=== PATIENT | female | born 1985 | race Caucasian/White ===

== ENCOUNTER 2016-09-29 19:37 | Inpatient (IN) | payer BC, OTHER ==
[~2016-09-29] VITALS: Ht 157.5 cm; Wt 72.6 kg
[2016-09-29] MEDS ORDERED: PRENTAB26 PO (20:00)
[2016-09-29 20:01] VITALS: Ht 157.5 cm; Wt 72.6 kg
[2016-09-29] MEDS ORDERED: LACTATED RINGER'S 1000ML 1,000 ML IV PRN (20:11)
[2016-09-29 20:31] LABS: MEAN CELL VOLUME 83.3 fL (80-100); MEAN CORPUSCULAR HEMOGLOBIN 28.2 pg (25-34); MEAN CORPUSCULAR HGB CONC 33.9 g/dl (32-36); MEAN PLATELET VOLUME 10.8 fL (7.4-10.4); PLATELET COUNT 181 K/uL (130-400); RED BLOOD COUNT 4.32 M/uL (4.2-5.4); WHITE BLOOD COUNT 8.97 K/uL (4.8-10.8)
--- NOTE | 2016-09-29 21:08 | HISTORY & PHYSICAL EXAMINATION ---
DATE OF ADMISSION: 09/29/2016 CHIEF COMPLAINT: Leakage of fluid. HISTORY OF PRESENT ILLNESS: The patient is a 30-year-old G1, P0 at 39 weeks and 1 day of gestation, who felt a gush of leakage of fluid at 5:30 p.m., it was clear. She has been leaking on her underwear as well as her pants since then. She started to feel contractions every 2-3 minutes for the last half an hour and they have not been very painful yet. She denies vaginal bleeding. She denies fever, chills, chest pain, shortness of breath, headache, change in her vision, nausea, vomiting or epigastric pain. She reports good movement. Her has been uncomplicated. PAST MEDICAL HISTORY: Unremarkable. PAST SURGICAL HISTORY: Carmen teeth extractions. MEDICATIONS: vitamins. ALLERGIES: No known drug allergies. SOCIAL HISTORY: The patient denies smoking, alcohol or drug use. GYNECOLOGIC HISTORY: The patient denies any history of STDs including Chlamydia, gonorrhea, herpes. This is her first . LABORATORIES: Her blood type is A positive, antibody screen negative. H\T\H was 11.8/36.3, platelets 251. Rubella titer positive, RPR nonreactive, hepatitis B surface antigen negative, and GC chlamydia cultures were negative. Glucola was 119 mg/dL. Repeat H\T\H was 10.9 /33.2, and GBS culture was negative on September 04. PHYSICAL EXAMINATION: GENERAL: The patient is alert, oriented x3, not in acute distress. VITAL SIGNS: Stable, afebrile, blood pressure 131/79, respiration 18, pulse 99, temperature 98.4. CARDIOVASCULAR SYSTEM: S1, S2, RRR. LUNGS: Clear to auscultation bilaterally. ABDOMEN: Soft, gravid, Vinny 7-1/2 to 8 pounds. EXTREMITIES: Nontender, no edema. PELVIC: She is grossly ruptured. Nitrazine test positive. Her cervix is 2 cm dilated, 50% effaced, -3 central, and vertex presentation. heart rate 130s, category 1. [place] contractions every 2-3 minutes. ASSESSMENT AND PLAN: The patient is a 30-year-old 1, para 0 at 39 weeks and 1 day of gestation; presenting with spontaneous rupture of membranes and regular contractions. Vital signs stable, afebrile. Group B strep negative. heart rate reassuring. Plan is to admit her, start IV fluids, expecting management for now. If no cervical change for the next 2 hours, consider Pitocin augmentation. The patient understands and agrees with the plan. She plans to have epidural when she needs it. JHON
[2016-09-29] MEDS ORDERED: LACTATED RINGER'S 1000ML 500 ML IV PRN (23:05)
[2016-09-29] MEDS ORDERED: OXYTOCIN 30 UNITS/500ML NSS IV PRN (23:15)
[2016-09-30] MEDS: LACTATED RINGER'S 1000ML 1,000 ML IV SCH ×2 (02:51→06:05)
[2016-09-30] MEDS ORDERED: BUPIVACAINE 0.25% 30 ML VIAL ONE (03:44)
[2016-09-30] MEDS ORDERED: EpHEDrine SULFATE INJ 50 MG/ML AMP ONE (03:44)
[2016-09-30] MEDS ORDERED: FENTANYL 2MCG/ML ROPIV 1.25MG/ML 100ML BAG EPI ONE (03:44)
[2016-09-30] MEDS ORDERED: FENTANYL CITRATE INJ 50 MCG/1 ML 2 ML VIAL ONE (03:45)
[2016-09-30] MEDS ORDERED: LACTATED RINGER'S 1000ML 500 ML IV PRN (04:32)
[2016-09-30] MEDS ORDERED: NALBUPHINE HCL INJ 10 MG/ML AMP IV PRN (04:45)
[2016-09-30] MEDS ORDERED: DiphenhydrAMINE HCL 50 MG/ML VIAL IV PRN (04:45)
[2016-09-30] MEDS ORDERED: EpHEDrine SULFATE INJ 50 MG/ML AMP IV PRN (04:45)
[2016-09-30] MEDS ORDERED: NALOXONE HCL INJ 0.4 MG/1 ML VIAL/CARP IV PRN (04:45)
[2016-09-30] MEDS ORDERED: ONDANSETRON INJ 2 MG/ML 2 ML VIAL IV PRN (04:45)
[2016-09-30] MEDS: FENTANYL 2MCG/ML ROPIV 1.25MG/ML 100ML BAG EPI PRN ×2 (07:00→11:58)
[2016-09-30] MEDS ORDERED: METHYLERGONOVINE MALEATE 0.2 MG/ML AMP ONE (14:08)
[2016-09-30] MEDS ORDERED: OXYTOCIN 30 UNITS/500ML NSS IV PRN (15:00)
[2016-09-30] MEDS ORDERED: HYDROCORTISONE ACETATE 25 MG SUPP PR PRN (15:00)
[2016-09-30] MEDS ORDERED: METHYLERGONOVINE MALEATE 0.2 MG/ML AMP IM ONE (15:00)
[2016-09-30] MEDS ORDERED: BENZOCAINE 20% AER SPR 82.5 GM CAN EXT PRN (15:00)
[2016-09-30] MEDS ORDERED: OXYCODONE/ACETAMINOPHEN 5-325 TAB PO PRN (15:00)
[2016-09-30] MEDS ORDERED: LANOLIN OINT EXT PRN ×2 (15:00)
[2016-09-30] MEDS ORDERED: ACETAMINOPHEN/CODEINE 300/30MG TAB PO PRN ×2 (15:00)
[2016-09-30] MEDS ORDERED: ACETAMINOPHEN 325 MG TAB PO PRN (15:00)
[2016-09-30] MEDS ORDERED: SUPERCREAM 0.870 % 15GM JAR EXT PRN (15:00)
--- NOTE | 2016-09-30 15:33 | OPERATIVE REPORT ---
DATE OF OPERATION: 09/30/2016 PROCEDURE NOTE The patient delivered a live female in occiput anterior presentation. There was loose nuchal cord which was easily reduced. Infant was delivered. There was also a body cord. The family requested delayed cord clamping, so request was honored. After the cord was cut the was placed on mother's abdomen. Placenta was spontaneously delivered. Inspection of the placenta showed grossly normal placenta with 3-vessel cord. Inspection of the perineum showed midline second degree laceration as well as another laceration in the right periurethral region. There was another laceration on the right vaginal wall. All lacerations were repaired with 3-0 and 2-0 Vicryl in layers. Inspection of the repaired laceration showed good hemostasis. Rectal exam post repair showed good sphincter tone. There were no sutures palpated in the rectum. Estimated blood loss is 500 mL. 's weight is pending. Apgars 8 and 9. Baby and mother are doing well in recovery. All instruments are removed from the vagina and accounted for x2 including sponges and needles. I attest to the content of the Intraoperative Record and any orders documented therein. Any exceptio ns are noted below.
--- NOTE | 2016-09-30 15:46 | Anesthesia Progress Nt - [facility] ---
Anesthesia Post Op Note Date & Time Sep 30, 2016 at 15:47 Vital Signs Pain Intensity: 0.0 Notes Mental Status: alert / awake / arousable, participated in evaluation Pt Amnestic to Procedure: Yes Nausea / Vomiting: adequately controlled Pain: adequately controlled Airway Patency, RR, SpO2: stable & adequate BP & HR: stable & adequate Hydration State: stable & adequate Anesthetic Complications: no major complications apparent
[2016-09-30 18:41] VITALS: BP 121/75; PULSE 109; TEMP 36.5
[2016-09-30] MEDS: IBUPROFEN 600 MG TAB PO PRN (19:29)
[2016-09-30 19:30] VITALS: BP 120/78; PULSE 103; TEMP 36.7; O2SAT 100
[2016-09-30] MEDS: DOCUSATE SODIUM 100 MG CAP PO SCH (19:33)
[2016-10-01 00:30] VITALS: BP 96/56; PULSE 79; TEMP 37.3
[2016-10-01] MEDS: IBUPROFEN 600 MG TAB PO PRN ×5 (03:00→20:35)
[2016-10-01 04:20] VITALS: BP 104/57; PULSE 81; TEMP 36.7; O2SAT 97
--- NOTE | 2016-10-01 06:34 | OB/GYN Progress Note ---
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 Subjective conversation w/ patient, physical exam Ambulation: ambulating normally Voiding: no voiding problems Passing Gas: Yes Diet Tolerance: Regular Diet Lochia: Moderate Review of Systems Constitutional: No chills, No fatigue, No fever, No problem reported, No sweats , No weakness, No weight loss Respiratory: No cough, No dyspnea at rest, No dyspnea on exertion, No hemoptysis, No problem reported, No shortness of breath, No sputum, No wheezing Cardiac: No PND, No chest pain, No claudication, No edema, No orthopnea, No palpitations, No problem reported Breast: No breast lump, No breast pain, No change in shape, No nipple discharge , No problem reported, No see HPI Abdomen: No GI bleeding, No constipation, No diarrhea, No nausea, No pain, No problem reported, No vomiting Female : No abnormal vaginal bleeding, No dysuria, No hematuria, No incontinence, No problem reported, No see HPI, No urinary frequency, No vaginal discharge VD day #1 pt doing well no complaints d/c home tomorrow Objective Vital Signs Date Time Temp Pulse Resp B/P Pulse Ox O2 Delivery O2 Flow Rate FiO2 10/01/16 04:20 36.7 81 18 104/57 97 Room Air 10/01/16 00:30 37.3 79 18 96/56 Room Air 10/01/16 00:30 Room Air 09/30/16 19:30 100 Room Air 09/30/16 19:30 36.7 103 20 120/78 100 Room Air 09/30/16 18:41 36.5 109 20 121/75 Room Air Laboratory Results Last 24 Hours Test 10/01/16 04:44
[2016-10-01 07:11] LABS: HEMATOCRIT 26.7 % (37-47)
[2016-10-01 07:30] VITALS: BP 103/56; PULSE 83; TEMP 36.8; O2SAT 97
[2016-10-01] MEDS: FERROUS SULFATE 325 MG TAB PO SCH (08:40)
[2016-10-01] MEDS: DOCUSATE SODIUM 100 MG CAP PO SCH ×2 (08:40→20:36)
[2016-10-01] MEDS: PRENATAL VITAMIN TAB PO SCH (08:41)
[2016-10-01 11:20] VITALS: BP 108/66; PULSE 85; TEMP 36.5; O2SAT 97
[2016-10-01 15:00] VITALS: BP 111/67; PULSE 94; TEMP 36.4
[2016-10-01] MEDS ORDERED: BISACODYL 5 MG TABEC PO SCH (20:00)
[2016-10-01 23:30] VITALS: BP 113/69; PULSE 75; TEMP 36.6
[2016-10-02] MEDS: IBUPROFEN 600 MG TAB PO PRN ×3 (00:41→10:55)
[2016-10-02 06:56] LABS: HEMATOCRIT 29.1 % (37-47); MEAN CELL VOLUME 84.8 fL (80-100); MEAN CORPUSCULAR HEMOGLOBIN 27.7 pg (25-34); MEAN CORPUSCULAR HGB CONC 32.6 g/dl (32-36); MEAN PLATELET VOLUME 10.5 fL (7.4-10.4); PLATELET COUNT 182 K/uL (130-400); RED BLOOD COUNT 3.43 M/uL (4.2-5.4); WHITE BLOOD COUNT 15.41 K/uL (4.8-10.8)
[2016-10-02] MEDS ORDERED: BISACODYL 10 MG SUPP PR PRN (07:00)
[2016-10-02 08:15] VITALS: BP 117/75; PULSE 83; TEMP 36.9; O2SAT 99
[2016-10-02] MEDS ORDERED: MTR600X PO (08:17)
--- NOTE | 2016-10-02 08:18 | Discharge Instructions ---
Discharge Instructions Admission Reason for Admission: Amniotic Fluid Leaking Discharge Discharge Diagnosis / Problem: term delivered Discharge Goals Goal(s): Routine recovery after delivery, Routine recovery after surgery Activity Recommendations Activity Limitations: as noted below Lifting Limitations: no more than 10 pounds Exercise/Sports Limitations: gradually increase as tolerated May Resume Sexual Activity: after follow-up appointment Shower/Bathe: no limitations Driving or Machine Use: resume 3 days after discharge . Instructions / Follow-Up Instructions / Follow-Up ACTIVITY RECOMMENDATIONS: * Gradual return to full activity over the next 2-3 weeks. * No lifting - nothing heavier than baby over the next 2-3 weeks. * Do not engage in vigorous exercise, sexual activity or sports until cleared by your physician. * Do not drive or operate any motorized equipment until cleared by your physician. * You may shower/bathe daily. BREAST CARE: If you are not breast feeding: * Wear a supportive bra 24 hours a day for one to two weeks. * Avoid stimulating your breasts and nipples as much as possible during the first few weeks after delivery. * When taking a shower, have the warm water hit your back, not breasts. * When your breasts feel full, apply ice packs. Usually three to four times a day helps ease the discomfort. * Take a mild pain medication (Tylenol/Motrin) when you are uncomfortable. If breast feeding: * Use breast milk to lubricate nipples. Lansinoh cream may be used for sore nipples. You do not need to remove cream prior to breast feeding. If using a different brand of cream, check the label for directions regarding removal of cream prior to nursing. * Wear a supportive bra. * If having problems with breasts or breast feeding, call a medical device sales consultant or your health care provider. EPISIOTOMY CARE: After delivery, if you have an episiotomy (stitches), the following steps will ease discomfort and aid healing. * For the first 24 hours after delivery, place ice packs next to your episiotomy to help reduce swelling. * After the first 24 hour-period, sitz baths, either portable or in the tub, are suggested. A shower with a shower arm sprayed over the episiotomy may be comforting. * Alesia care should be done after each voiding and bowel movement. Squirt warm water from a plastic bottle over the perineum (region of the body between the anus and urinary opening) and pat dry. * Use Dermoplast to ease discomfort. Shake container. Benedict directly over the episiotomy. * Place a Tucks on a clean sanitary pad next to your episiotomy. OVER THE COUNTER MEDICATION: * For discomfort or pain, you may use Acetaminophen (Tylenol), Ibuprofen (Advil ), or Naproxen (Aleve) following the package directions. * For constipation you may use Colace following the package directions. SPECIAL CARE INSTRUCTIONS: When you are discharged from the hospital, it is important for you to follow the instructions listed below: * During the first week at home, you should be able to care for yourself and your baby. In addition, the usual light household activities are encouraged. * Limit your activities to the way you feel. Do not try to clean the house or move furniture. Be sensible. * If you actively engage in sports and have done so up until the time of your delivery, you may resume these activities as soon as you feel able. This may take up to one month or even longer. Use good judgment. * Continue to take your vitamins for at least six weeks after the of your baby. * Your diet need not be limited unless you were on a special diet before your delivery. Breast-feeding mothers need around 2500 calories per day and at least 64-80 ounces of fluid per day (8 to 10 glasses). * You should eat foods from the four major food groups. Crash diets or fad diets are to be avoided. Eating lean meats, fresh fruits and vegetables, low-fat dairy products, high fiber foods and a regular exercise program, will help you get back to your pre- weight without putting your health at risk. * Constipation is sometimes a problem after delivery. Take a mild laxative as needed. If breast feeding, Milk of Magnesia is acceptable to use. You may use a suppository or Fleets enema if no episiotomy. * A daily shower or tub bath is suggested. Be sure to thoroughly and gently dry the perineum. * A bloody vaginal discharge will usually continue until around four weeks post . A small amount of bleeding may continue for as long as six weeks. Vaginal discharge changes from the bright red bleeding after delivery to pink then brownish and finally yellowish-pink before becoming white and disappearing. * Bleeding may increase with activity. Your first period may come in 4-8 weeks. If you are breast feeding, your period may be delayed even longer. * [place] (sex) can begin whenever both you and your partner feel comfortable and do not have any form of genital infection. It is recommended that you wait until after your return appointment and discuss with your physician. If you have questions, please talk to your health care practitioner. A condom should be used to prevent infection and . * Foreplay, gentle intercourse and lubrication is very important the first several times to prevent pain. A water-based lubricant such as K-Y jelly or Astroglide may be used. * Tampons may be used six weeks after delivery. * Douching should be avoided for 6 weeks after delivery. * If you have RH negative blood and your baby is RH positive, you will receive RHOGAM by injection prior to discharge. The nurse will give you a card to keep with you that has the date and place that you received RHOGAM after delivery. * During your care, you had a Rubella screen done to check for the presence of rubella antibodies in your blood. If your test was negative, you will receive a Rubella vaccine prior to discharge. This vaccine may cause a fever, soreness at the injection site and flu-like symptoms. If these symptoms persist, notify your health care practitioner. is not advised for three months after a Rubella vaccine. There is a higher chance of having a baby with defects if conceived within three months of getting the vaccine. * If you were discharged 24 hours from delivery or before 48 hours: Visiting nurses will come to your home 48 hours after discharge to assess you and your baby. The visiting nurse will meet with you while you are in the hospital to arrange a time and get directions to your home. * Verbalizes understanding of car seat law as reviewed with patient nursing. * Car Seat hand-out given and reviewed with patient by nursing. * Shaken baby information reviewed with patient by nursing. Call you doctor if: * Heavy bleeding (saturating several pads an hour) or passing clots the size of your fist. * A fever >101 degrees F (38.3 degrees C) on two occasions four hours apart and/or chills. * Unusual pain in the pelvic or vaginal areas. * "Baby Blues" lasting longer than two weeks. If you have any questions or concerns, call your health care practitioner at . FOLLOW-UP VISIT: * Please call the office at to schedule a 6 week examination. It is important you keep this appointment. * It is important for you to make arrangements for either yearly or twice yearly check-ups thereafter. Current Hospital Diet Patient's current hospital diet: Regular OB Diet Discharge Diet Recommended Diet: Regular OB Diet Pending Studies Studies pending at discharge: no Medical Emergencies . Who to Call and When: Medical Emergencies: If at any time you feel your situation is an emergency, please call 911 immediately. . Non-Emergent Contact Non-Emergency issues call your: Primary Care Provider . . "Provider Documentation" section prepared by Isac Rosenbaum. VTE Core Measure Inpt VTE Proph given/why not?: Treatment not indicated
--- NOTE | 2016-10-02 08:19 | OB/GYN Progress Note ---
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 Subjective conversation w/ patient, physical exam Ambulation: ambulating normally Voiding: no voiding problems Passing Gas: Yes Diet Tolerance: Regular Diet Lochia: Small Feeding Type: Breast Feeding Objective Vital Signs Date Time Temp Pulse Resp B/P Pulse Ox O2 Delivery O2 Flow Rate FiO2 10/01/16 23:30 Room Air 10/01/16 23:30 36.6 75 18 113/69 Room Air 10/01/16 15:00 Room Air 10/01/16 15:00 36.4 94 18 111/67 Room Air 10/01/16 11:20 36.5 85 16 108/66 97 Room Air Physical Exam General Appearance: WELL-APPEARING, NO APPARENT DISTRESS Abdomen: non tender, soft Fundus: Firm Extremities: non-tender, normal inspection, no pedal edema Laboratory Results Last 24 Hours Test 10/02/16 06:34 White Blood Count 15.41 K/uL Red Blood Count 3.43 M/uL Hemoglobin 9.5 g/dL Hematocrit 29.1 % Mean Corpuscular Volume 84.8 fL Mean Corpuscular Hemoglobin 27.7 pg Mean Corpuscular Hemoglobin Concent 32.6 g/dl RDW Standard Deviation 44.7 fL RDW Coefficient of Variation 14.7 % Platelet Count 182 K/uL Mean Platelet Volume 10.5 fL Assessment and Plan Post- Day Number: 2 Continue Routine Care: discharged
[2016-10-02] MEDS: FERROUS SULFATE 325 MG TAB PO SCH (08:27)
[2016-10-02] MEDS: DOCUSATE SODIUM 100 MG CAP PO SCH (08:27)
[2016-10-02] MEDS: PRENATAL VITAMIN TAB PO SCH (08:27)
[2016-10-02 14:55] VITALS: BP_DIAS 75; PULSE 83; TEMP 36.9
== END 2016-10-02 15:50 | disposition home or self-care (01) | DRG 775 ==
LOC: C.OPB 19:37 → C.LD 19:38 → C.OPB 20:12 → C.LD 20:12 → C.OBG 09-30 18:36
PROVIDERS: ADMIT Obstetrics & Gynecology; ATTEND Obstetrics & Gynecology
PROC: 10E0XZZ Delivery of Products of Conception, External Approach (ICD-10-PCS; principal; 2016-09-30)
PROC: 0KQM0ZZ Repair Perineum Muscle, Open Approach (ICD-10-PCS; principal; 2016-09-30)
PROC: 0UQMXZZ Repair Vulva, External Approach (ICD-10-PCS; principal; 2016-09-30)
DX: O42.02 Full-term premature rupture of membranes, onset of labor within 24 hours of rupture (principal); O70.1 Second degree perineal laceration during delivery; O71.82 Other specified trauma to perineum and vulva; O69.81X0 Labor and delivery complicated by cord around neck, without compression, not applicable or unspecified; O69.82X0 Labor and delivery complicated by other cord entanglement, without compression, not applicable or unspecified; Z3A.39 39 weeks gestation of pregnancy; Z37.0 Single live birth